=== PATIENT | female | born 1945 | race Caucasian/White ===

== ENCOUNTER 2018-03-09 09:58 | Emergency (ER) | payer MEDICARE, OTHER | END 2018-03-09 10:50 | disposition home or self-care (01) | LOC: FTE 09:58 | DX: J06.9 Acute upper respiratory infection, unspecified (principal); I10 Essential (primary) hypertension | CPT/HCPCS: 99283 ==

== ENCOUNTER 2019-01-07 11:00 | Emergency (ER) | payer MEDICARE, OTHER | END 2019-01-07 13:01 | disposition home or self-care (01) | LOC: FTE 11:00 | DX: F41.9 Anxiety disorder, unspecified (principal); I10 Essential (primary) hypertension; J45.909 Unspecified asthma, uncomplicated | CPT/HCPCS: 99283 ==

== ENCOUNTER 2019-01-16 12:29 | Emergency (ER) | payer MEDICARE, OTHER ==
[2019-01-16] MEDS: KETOROLAC 15 MG INJ IM (14:04)
[2019-01-16] MEDS: LORAZEPAM 0.5 MG TAB PO (14:08)
== END 2019-01-16 14:46 | disposition home or self-care (01) ==
LOC: FTE 12:29
DX: F41.9 Anxiety disorder, unspecified (principal); R51 Headache; I10 Essential (primary) hypertension; J45.909 Unspecified asthma, uncomplicated
CPT/HCPCS: 93005; 96372; 99284-25